=== PATIENT | female | born 1965 | race Two or more races ===

== ENCOUNTER 2017-09-26 02:23 | Emergency (ER) | payer MEDICAID, OTHER ==
[~2017-09-26] VITALS: Ht 162.6 cm; Wt 89.4 kg
[2017-09-26 03:13] VITALS: BP 134/72
== END 2017-09-26 06:09 | disposition left against medical advice (07) ==
LOC: ER 02:23 → EDBD 02:23 → ER 06:09
DX: R10.9 Unspecified abdominal pain (principal); R11.2 Nausea with vomiting, unspecified; Z53.21 Procedure and treatment not carried out due to patient leaving prior to being seen by health care provider

== ENCOUNTER 2021-10-18 04:58 | Emergency (ER) | payer MEDICAID ==
[~2021-10-18] VITALS: Ht 162.6 cm; Wt 88.5 kg
[2021-10-18 05:02] VITALS: BP 173/100
[2021-10-18] MEDS ORDERED: ASPirin 81 mg TAB PO ONE (05:15)
[2021-10-18 07:26] LABS: Basophils # (auto) 0.1 10 ^3/uL (0-0.2); Basophils % (auto) 1.8 % (0.0-2.0); Eosinophils # (auto) 0.3 10 ^3/uL (0-0.8); Eosinophils % (auto) 4.1 % (0.0-7.0); Hematocrit 43.2 % (36.0-46.0); Hemoglobin 14.3 g/dL (12.2-16.2); Lymphocytes # (auto) 1.8 10 ^3/uL (0.4-5.4); Mean Corpuscular Hemoglobin 30.8 pg (28.0-32.0); Mean Corpuscular Volume 93.2 fL (80.0-100.0); Monocytes # (auto) 0.5 10 ^3/uL (0-1.3); Monocytes % (auto) 7.6 % (0.0-12.0); Neutrophils # (auto) 4.3 10 ^3/uL (1.6-8.6); Neutrophils % (auto) 61.5 % (37.0-80.0); Nucleated Red Blood Cells % 0.1 %; Red Blood Cells 4.64 10^6/uL (4.0-5.20); Red Cell Distribution Width 13.4 % (11.8-14.3)
[2021-10-18 07:30] LABS: Albumin 3.8 g/dL (3.4-5.0); Calcium 8.7 mg/dL (8.5-10.1); Potassium 3.4 mmol/L (3.5-5.1)
[2021-10-18 07:35] LABS: BUN/Creatinine Ratio 17.9; Bilirubin, Total 0.4 mg/dL (0.2-1.0); Total Protein 8.4 g/dL (6.4-8.2)
== END 2021-10-18 08:19 | disposition left against medical advice (07) ==
LOC: ER 04:58
DX: R07.89 Other chest pain (principal); I10 Essential (primary) hypertension; E78.5 Hyperlipidemia, unspecified; Z90.49 Acquired absence of other specified parts of digestive tract; Z90.710 Acquired absence of both cervix and uterus
CPT/HCPCS: 36415; 71046; 80053; 83880; 84484; 85025; 93005

== ENCOUNTER 2025-05-28 10:33 | Inpatient (IN) | payer MEDICAID ==
[~2025-05-28] VITALS: Ht 160 cm; Wt 79.3 kg
--- NOTE | 2025-05-28 11:07 | ED.PDOC ---
Mult. trauma (HPI) HPI Comments 60 y.o female with PMHx of rheumatoid arthritis, osteoarthritis,chronic back pain HTN, and HLD, presents to the ED for a chief complaint of right sided body pain that includes right sided head, elbow, hip and knee s/p fall last night. Patient recalls getting up in the middle of the night to use the restroom, felt dizzy and then woke up on the floor with soreness to her right sided. Patient mentions having about 3 syncopes within a 3 month span with the previous being 3 weeks ago which she was found by her son on the floor unconscious in her closet. Patient denies any chest pain, SOB, fever, chills. Patient reports some back pain due to history of chronic back pain, although no new or worsening back to region site. Chief Complaint: Fall Injury Time Seen by MD: 11:00 Primary Care Provider: SATINDER Reviewed notes: Nurses Notes, Medications, Allergies Allergies: Coded Allergies: NO KNOWN ALLERGIES (Unverified , 10/18/21) Information Source: Patient Mode of Arrival: Ambulatory Severity: Moderate Timing: Hours Duration: Since onset Location: (R) Elbow, Head, (R) Hip, (R) Knee Location of laceration: None Mechanism: Fall Associated signs and symtoms: Other Past Medical History PAST MEDICAL HISTORY: Arthritis, High Lipids, HTN Surgical History: Cholecystectomy, , Hysterectomy Family History Family History: Family hx of DM, Family hx of Cancer Social History Smoker: Non-Smoker Alcohol: Denies ETOH Use Drugs: Denies Drug Use Constitutional: denies: chills, diaphoresis, fatigue, fever, malaise, sweats, weakness, others EENTM: denies: blurred vision, double vision, ear bleeding, ear discharge, ear drainage, ear pain, ear ringing, eye pain, eye redness, hearing loss, mouth pain, mouth swelling, nasal discharge, nose bleeding, nose congestion, nose pain, photophobia, tearing, throat pain, throat swelling, voice changes, others Respiratory: denies: cough, hemoptysis, orthopnea, SOB at rest, shortness of breath, SOB with excertion, stridor, wheezing, others Cardiovascular: denies: chest pain, dizzy spells, diaphoresis, Dyspnea on exertion, edema, irregular heart beat, left arm pain, lightheadedness, palpitations, PND, syncope, others Gastrointestinal: denies: abdomen distended, abdominal pain, blood streaked bowels, constipated, diarrhea, dysphagia, difficulty swallowing, hematemesis, melena, nausea, poor appetite, poor fluid intake, rectal bleeding, rectal pain, vomiting, others Genitourinary: denies: abnormal vagina bleeding, burning, dyspareunia, dysuria, flank pain, frequency, hematuria, incontinence, pain, , vagina discharge, urgency, others Neurological: denies: dizziness, fainting, headache, left sided numbness, left sided weakness, numbness, paresthesia, pre-existing deficit, right sided numbnes s, right sided weakness, seizure, speech problems, tingling, tremors, weakness, others Musculoskeletal: reports: others (right sided body soreness); denies: back pain, gout, joint pain, joint swelling, muscle pain, muscle stiffness, neck pain Integumetry: denies: bruises, change in color, change in hair/nails, dryness, laceration, lesions, lumps, rash, wounds, others Allergic/Immunocompromised: denies: Difficulty Healing, Frequent Infections, Hives, Itching, others Hematologic/Lymphatic: denies: anemia, blood clots, easy bleeding, easy bruising, swollen glands, others Endocrine: denies: excessive hunger, excessive sweating, excessive thirst, excessive urination, flushing, intolerance to cold, intolerance to heat, unexplained weight gain, unexplained weight loss, others Psychiatric: denies: anxiety, bipolar disorder, depression, hopeless, panic disorder, schizophrenia, sleepless, suicidal, others All Other Systems: Reviewed and Negative Physical Exam General Appearance: No Apparent Distress, Normal HEENT: Normal ENT Inspection Neck: Normal Inspection Respiratory: No Accessory Muscle Use, No Respiratory Distress Cardiovascular: Normal Peripheral Pulses, Regular Rate/Rhythm Breast Exam: Deferred Gastrointestinal: NOT DONE Genitalia: Deferred Pelvic: Deferred Rectal: Deferred Extremities: Normal inspection, Normal range of motion Neurologic: Alert, Normal Affect, Other (Ambulatory without assistance ) Reflexes: Normal Skin: Dry, Normal Color Lymphatic: NOT DONE Was a procedure done? Was a procedure done?: No Differential Diagnosis Multiple Trauma: Closed Head Injury, Fractures, Abrasions, Contusion X-Ray, Labs, Meds, VS Vital Signs Date Time Temp Pulse Resp B/P (MAP) Pulse Ox O2 Delivery O2 Flow Rate FiO2 05/28/25 10:34 97.8 67 18 134/78 98 97.8 Time of 1ST Reevaluation: 11:10 Reevaluation 1ST: Unchanged Patient Education/Counseling: Diagnosis, Treatment, Prognosis Family Education/Counseling: No Family Present Critical Care Note Critical Care Time?: No Stability Stability form required: No Heart Score Heart Score: Heart Score Response (Comments) Value History N/A 0 EKG N/A 0 Age N/A 0 Risk Factors N/A 0 Troponin N/A 0 Total 0 I personally scribed for ASHLEY WIGGINS MD ([email or web address]) on 05/28/25 at 11:07. Electronically submitted by Marti Sesay ([facility]). I personally scribed for ASHLEY WIGGINS MD ([email or web address]) on 05/28/25 at 11:10. Electronically submitted by Marti Sesay ([facility] I personally scribed for ASHLEY WIGGINS MD ([email or web address]) on 05/28/25 at 11:19. Electronically submitted by Marti Sesay ([facility]). ASHLEY WIGGINS MD May 28, 2025 11:07
--- NOTE | 2025-05-28 11:13 | ED.PDOC ---
History of Present Illness HPI Comments Recurrent falls, dizziness, generalized weakness Chief Complaint: Fall Injury Comments This 60-year-old female presents secondary to recurrent falls. She states she has fallen multiple times over the last three months. She finds herself on the floor after these events. She has no sensation or presenting noticed that she will fall. This morning, however, she states she feels generally unwell. Next thing she knows, she feels herself on the ground with the right side of her head, right shortness/normal right hip hurting. She became concerned and presented here. She has no other focal complaints but does feel generally weak. She endorses being under more stress than usual but otherwise has no other complaints. She denies such things with the vision changes, chest pain, flank pain, dysuria, urine frequency, fever, chills, sweats, nausea or vomiting. Denies modifying factors. Denies radiation of her symptoms. Time Seen by MD: 10:49 Primary Care Provider: SATINDER Allergies: Coded Allergies: NO KNOWN ALLERGIES (Unverified , 10/18/21) Mode of Arrival: Ambulatory Past Medical History PAST MEDICAL HISTORY: Arthritis, High Lipids, HTN Surgical History: Cholecystectomy, , Hysterectomy Family History Family History: Family hx of DM, Family hx of Cancer Social History Smoker: Non-Smoker Alcohol: Denies ETOH Use Drugs: Denies Drug Use Constitutional: reports: fatigue, malaise, weakness; denies: chills, diaphoresis, fever, sweats, others EENTM: denies: blurred vision, double vision, ear bleeding, ear discharge, ear drainage, ear pain, ear ringing, eye pain, eye redness, hearing loss, mouth pain, mouth swelling, nasal discharge, nose bleeding, nose congestion, nose pain, photophobia, tearing, throat pain, throat swelling, voice changes, others Respiratory: denies: cough, hemoptysis, orthopnea, SOB at rest, shortness of breath, SOB with excertion, stridor, wheezing, others Cardiovascular: denies: chest pain, dizzy spells, diaphoresis, Dyspnea on exertion, edema, irregular heart beat, left arm pain, lightheadedness, palpitations, PND, syncope, others Gastrointestinal: denies: abdomen distended, abdominal pain, blood streaked bowels, constipated, diarrhea, dysphagia, difficulty swallowing, hematemesis, melena, nausea, poor appetite, poor fluid intake, rectal bleeding, rectal pain, vomiting, others Genitourinary: denies: abnormal vagina bleeding, burning, dyspareunia, dysuria, flank pain, frequency, hematuria, incontinence, pain, , vagina discharg e, urgency, others Neurological: reports: fainting; denies: dizziness, headache, left sided numbness, left sided weakness, numbness, paresthesia, pre-existing deficit, right sided numbness, right sided weakness, seizure, speech problems, tingling, tremors, weakness, others Musculoskeletal: reports: back pain, joint pain, muscle pain; denies: gout, joint swelling, muscle stiffness, neck pain, others Integumetry: denies: bruises, change in color, change in hair/nails, dryness, laceration, lesions, lumps, rash, wounds, others Allergic/Immunocompromised: denies: Difficulty Healing, Frequent Infections, Hives, Itching, others Hematologic/Lymphatic: denies: anemia, blood clots, easy bleeding, easy b ruising, swollen glands, others Endocrine: denies: excessive hunger, excessive sweating, excessive thirst, excessive urination, flushing, intolerance to cold, intolerance to heat, unexplained weight gain, unexplained weight loss, others Physical Exam General Appearance: Mild Distress, Normal HEENT: Head (Atraumatic, normocephalic), Normal ENT Inspection, Scleral Icterus (R) (No scleral icterus) Neck: Full Range of Motion, Non-Tender, Normal, Normal Inspection Respiratory: Chest Non-Tender, Lungs Clear, No Accessory Muscle Use, No Respiratory Distress, Normal Breath Sounds Cardiovascular: No Edema, No Murmur, No Gallop, Normal Peripheral Pulses, Regular Rate/Rhythm Breast Exam: Deferred Gastrointestinal: No Organomegaly, Non Tender, Normal Bowel Sounds, Soft Genitalia: Deferred Pelvic: Deferred Rectal: Deferred Extremities: No calf tenderness, Normal capillary refill, Normal inspection, Normal range of motion, Non-tender, No pedal edema Neurologic: Alert, audio/visual operator II-XII nml as Tested, No Motor Deficits, Normal Affect, Normal Mood, No Sensory Deficits Cerebellar Function: Normal Reflexes: NOT DONE Skin: Dry, Normal Color, Warm Lymphatic: NOT DONE Was a procedure done? Was a procedure done?: No Differential Dx Considerations may include: Cardiac arrhythmia, electrolyte abnormality, infection, TIA X-Ray, Labs, Meds, VS Vital Signs Date Time Temp Pulse Resp B/P (MAP) Pulse Ox O2 Delivery O2 Flow Rate FiO2 05/28/25 11:49 65 18 117/72 (87) 99 05/28/25 11:49 65 18 99 Room Air 05/28/25 10:34 97.8 67 18 134/78 98 97.8 Lab Test 05/28/25 11:25 05/28/25 11:15 Range/Units Urine Color Light-yellow Yellow Urine Clarity Clear Clear Urine pH 6.0 5.0-9.0 Urine Specific [place] 1.017 1.001-1.035 Urine Protein Trace H Negative Urine Ketones Negative Negative Urine Blood Negative Negative /uL Urine Nitrite Negative Negative Urine Bilirubin Negative Negative Urine Urobilinogen Normal Negative mg/dL Urine Leukocyte Esterase 2+ Negative /uL Urine RBC 1 0 - 4 /hpf Urine Microscopic WBC 3 0-5 /HPF Urine Squamous Epithelial Cells Few <5 /hpf Urine Bacteria Few H None Seen /hpf Urine Mucus Few None Seen Urine Glucose Normal Normal mg/dL Urine Opiates Screen Neg NEGATIVE Urine Fentanyl Screen Neg NEGATIVE Urine Barbiturates Screen Neg NEGATIVE Urine Phencyclidine Screen Neg NEGATIVE Urine Amphetamines Screen Neg NEGATIVE Urine Benzodiazepines Screen Neg NEGATIVE Urine Cocaine Screen Neg NEGATIVE Urine Cannabinoids Screen Neg NEGATIVE White Blood Count 9.2 4.4-10.8 10^3/uL Red Blood Count 4.38 4.0-5.20 10^6/uL Hemoglobin 14.2 12.2-16.2 g/dL Hematocrit 40.7 36.0-46.0 % Mean Corpuscular Volume 93.0 80.0-100.0 fL Mean Corpuscular Hemoglobin 32.5 H 28.0-32.0 pg Mean Corpuscular Hemoglobin Concent 34.9 32.0-36.0 g/dL Red Cell Distribution Width 13.0 11.8-14.3 % Platelet Count 280 140-450 10^3/uL Mean Platelet Volume 10.4 6.9-10.8 fL Neutrophils (%) (Auto) 63.4 37.0-80.0 % Lymphocytes (%) (Auto) 26.8 10.0-50.0 % Monocytes (%) (Auto) 7.6 0.0-12.0 % Eosinophils (%) (Auto) 1.2 0.0-7.0 % Basophils (%) (Auto) 1.0 0.0-2.0 % Neutrophils # (Auto) 5.8 1.6-8.6 10 ^3/uL Lymphocytes # (Auto) 2.5 0.4-5.4 10 ^3/uL Monocytes # (Auto) 0.7 0-1.3 10 ^3/uL Eosinophils # (Auto) 0.1 0-0.8 10 ^3/uL Basophils # (Auto) 0.1 0-0.2 10 ^3/uL Nucleated Red Blood Cells 0.0 % D-Dimer, Quantitative 0.75 H 0.0-0.49 mg/L FEU Sodium Level 138 136-145 mmol/L Potassium Level 2.7 L 3.5-5.1 mmol/L Chloride Level 99 98-107 mmol/L Carbon Dioxide Level 26 20-31 mmol/L Anion Gap 13 5-15 Blood Urea Nitrogen 18 9-23 mg/dL Creatinine 1.10 H 0.550-1.02 mg/dL Glomerular Filtration Rate Calc 58 >90 mL/min BUN/Creatinine Ratio 16.4 10.0-20.0 Serum Glucose 100 74-106 mg/dL Calcium Level 9.7 8.7-10.4 mg/dL Total Bilirubin 0.5 0.2-1.0 mg/dL Aspartate Amino Transferase (AST) 30 13-40 U/L Alanine Aminotransferase (ALT) 21 7-40 U/L Alkaline Phosphatase 84 46-116 U/L Troponin I High Sensitivity 3 L </=34 ng/L B-Type Natriuretic Peptide 7.72 0-100 pg/mL Total Protein 8.5 H 5.7-8.2 g/dL Albumin 4.8 3.2-4.8 g/dL [place] [id number] Ph: [phone] DIAGNOSTIC IMAGING Diagnostic Imaging Report : [id number] Signed PATIENT: SIDDHARTHA LISA ACCT: [id number] UNIT: [id number] : 1965 LOC: ER ROOM / BED: / AGE / SEX: 60 / F ADM STATUS: REG ER SERVICE [id number] ORDERING PHYSICIAN: ASHLEY WIGGINS MD PROCEDURE(s): HWOCT - HEAD WITHOUT CONTRAST REASON: recurrent falls, generalized weakness ORDER NUMBER(s): [id number], ACCESSION NUMBER(s): [id number] CT HEAD WITHOUT CONTRAST INDICATION: recurrent falls, generalized weakness COMPARISON: None TECHNIQUE: CT of the head without intravenous contrast. RADIATION DOSE: CTDIvol: 53.46 mGy, DLP: 53.46 mGy*cm FINDINGS: There is no evidence of acute intracranial hemorrhage, extra-axial collection, mass effect, midline shift, herniation or hydrocephalus. The ventricles, sulci and cisterns are age appropriate. The dueñas-white differentiation is intact. The visualized paranasal sinuses and mastoid air cells are clear. The surrounding soft tissues and osseous structures are unremarkable. IMPRESSION: 1. No evidence of acute intracranial hemorrhage, mass effect or hydrocephalus. ATED BY: DESHAWN COLLINS MD DICTATED DATE/TIME: 05/28/25 113 SIGNED BY: DESHAWN CLOLINS MD SIGNED DATE/TIME: 05/28/251137 CC: X-Ray, Labs, Meds, VS Comment This 60-year-old female presents secondary to multiple episodes of faint. However, she denies having any preceding noticed of her falls. She patient's finds herself on the floor. She has had multiple times over the last three months. She has not seen a physician for these episodes. Secondary to the recurrent nature and multiple cardiac risk factors, worse the patient may be having cardiac arrhythmia or other findings were we are not capturing while in the emergency room. As such, she will be admitted. Time of 1ST Reevaluation: 13:34 Reevaluation 1ST: Unchanged Patient Education/Counseling: Diagnosis, Treatment, Prognosis, Need For Follow Up Family Education/Counseling: No Family Present SEPSIS Sepsis Screen Date sepsis recognized/suspect: May 28, 2025 Time Sepsis recognized/suspect: 1034 Recent Procedure: No On Antibiotic Therapy: No Respiratory Rate >20: No Heart Rate >90: No Temp<36 C (96.8 F) or >38.3 C: No SBP <90 or MAP <65 mmHG: No New Acute Mental Status Change: No Is the patient on CPAP, BIPAP,: No Physician Orders Head Without Contrast (05/28/25 10:57) Electrocardigram (05/28/25 10:57) Electrocardigram (05/28/25 11:57) Electrocardigram (05/28/25 13:57) Vital Signs Date Time Temp Pulse Resp B/P (MAP) Pulse Ox O2 Delivery O2 Flow Rate FiO2 05/28/25 11:49 65 18 117/72 (87) 99 05/28/25 11:49 65 18 99 Room Air 05/28/25 10:34 97.8 67 18 134/78 98 97.8 Laboratory Tests Test 05/28/25 11:15 White Blood Count 9.2 10^3/uL (4.4-10.8) Departure 1 Departure Time of Disposition: 11:13 Impression: Primary Impression: Recurrent falls while walking Additional Impressions: Weakness Syncope Hypokalemia Disposition: ADMITTED INPATIENT Admit to: [facility] Condition: Serious Critical Care Note Critical Care Time?: No Stability Stability form required: No Heart Score Heart Score: Heart Score Response (Comments) Value History N/A 0 EKG N/A 0 Age N/A 0 Risk Factors N/A 0 Troponin N/A 0 Total 0 I personally scribed for ASHLEY WIGGINS MD ([email or web address]) on 05/28/25 at 11:51. Electronically submitted by Marti Sesay ([facility]). ASHLEY WIGGINS MD May 28, 2025 11:13
--- NOTE | 2025-05-28 11:40 | DVH ---
CT HEAD WITHOUT CONTRAST INDICATION: recurrent falls, generalized weakness COMPARISON: None TECHNIQUE: CT of the head without intravenous contrast. RADIATION DOSE: CTDIvol: 53.46 mGy, DLP: 53.46 mGy*cm FINDINGS: There is no evidence of acute intracranial hemorrhage, extra-axial collection, mass effect, midline s hift, herniation or hydrocephalus. The ventricles, sulci and cisterns are age appropriate. The dueñas -white differentiation is intact. The visualized paranasal sinuses and mastoid air cells are clear. The surrounding soft tissues and osseous structures are unremarkable. IMPRESSION: 1. No evidence of acute intracranial hemorrhage, mass effect or hydrocephalus.
[2025-05-28 11:41] LABS: Hematocrit 40.7 % (36.0-46.0); Hemoglobin 14.2 g/dL (12.2-16.2); Mean Corpuscular Hemoglobin 32.5 pg (28.0-32.0); Mean Corpuscular Volume 93.0 fL (80.0-100.0); Nucleated Red Blood Cells % 0.0 %
[2025-05-28 12:00] LABS: Alanine Aminotransferase 21 U/L (7-40); Albumin 4.8 g/dL (3.2-4.8); Alkaline Phosphatase 84 U/L (46-116); Anion Gap 13 (5-15); BUN/Creatinine Ratio 16.4 (10.0-20.0); Blood Urea Nitrogen 18 mg/dL (9-23); Calcium 9.7 mg/dL (8.7-10.4); Carbon Dioxide 26 mmol/L (20-31); Chloride 99 mmol/L (98-107); Glucose 100 mg/dL (74-106); Sodium 138 mmol/L (136-145)
[2025-05-28 12:01] LABS: Bilirubin, Total 0.5 mg/dL (0.2-1.0); Potassium 2.7 mmol/L (3.5-5.1); Total Protein 8.5 g/dL (5.7-8.2)
[2025-05-28 12:50] LABS: Urine Protein, UAD TRACE (Negative)
[2025-05-28 12:54] LABS: Benzodiazephine Screen, Urine Neg (NEGATIVE)
[2025-05-28 12:55] LABS: Amphetamine Screen, Urine Neg (NEGATIVE); Barbiturate Scree,Urine Neg (NEGATIVE); Cannabinoid Screen, Urine Neg (NEGATIVE); Cocaine Screen, Urine Neg (NEGATIVE); Opiate Scree,Urine Neg (NEGATIVE); Phencyclidine Screen, Urine Neg (NEGATIVE)
[2025-05-28] MEDS ORDERED: DOCUSATE SOD 100 MG CAP PO PRN (15:15)
[2025-05-28] MEDS ORDERED: ACETAMINOPHEN 325 MG TAB PO PRN (15:15)
[2025-05-28] MEDS ORDERED: ONDANSETRON HCL 4 MG/2 ML VIAL IV PRN (15:15)
--- NOTE | 2025-05-28 15:16 | DVHHP2 ---
Admitting Diagnosis: Syncope History of Present Illness This 60-year-old female presents secondary to recurrent falls. She states she has fallen multiple times over the last three months. She finds herself on the floor after these events. She has no sensation or presenting noticed that she will fall. This morning, however, she states she feels generally unwell. Next thing she knows, she feels herself on the ground with the right side of her head, right shortness/normal right hip hurting. She became concerned and presented here. She has no other focal complaints but does feel generally weak. She endorses being under more stress than usual but otherwise has no other complaints. She denies such things with the vision changes, chest pain, flank pain, dysuria, urine frequency, fever, chills, sweats, nausea or vomiting. Denies modifying factors. Denies radiation of her symptoms. PAST MEDICAL HISTORY: Arthritis, High Lipids, HTN Surgical History: Cholecystectomy, , Hysterectomy Family History Family History: Family hx of DM, Family hx of Cancer Social History Smoker: Non-Smoker Alcohol: Denies ETOH Use Drugs: Denies Drug Use Allergies: Coded Allergies: NO KNOWN ALLERGIES (Unverified , 10/18/21) Current Medications Current Medications Medications (Trade) Dose Ordered Sig/Ariana Route PRN Reason Start Time Stop Time Status Last Admin Sodium Chloride (Saline Lock Ns) 10 ml Q8HR IV 05/28/25 22:00 UNV Docusate Sodium (Colace Capsule) 100 mg BIDPRN PRN PO FOR CONSTIPATION 05/28/25 15:15 UNV Acetaminophen (Tylenol Tablet) 650 mg Q6HP PRN PO PAIN SCALE 1-3 OR TEMP>100.4 05/28/25 15:15 UNV Acetaminophen/ Hydrocodone Bitart ([place] 5/325MG Tab) 1 tab Q4HP PRN PO MODERATE PAIN (4-6 PAIN SCALE) 05/28/25 15:15 UNV Ondansetron HCl (Zofran) 4 mg Q4HP PRN IV NAUSEA / VOMITING 05/28/25 15:15 UNV Enoxaparin Sodium (Lovenox) 40 mg DAILY SC 05/29/25 10:00 UNV Vital Signs Vital Signs Date Time Temp Pulse Resp B/P (MAP) Pulse Ox O2 Delivery O2 Flow Rate FiO2 05/28/25 11:49 65 18 117/72 (87) 99 8/24/25 11:49 Room Air 05/28/25 10:34 97.8 97.8 Physical Exam Generally-60 years old woman, overweight, sitting on chair. No apparent distress HEENT-atraumatic normocephalic Heart-regular rate and rhythm lungs clear to auscultate Abdomen soft nontender nondistended Musculoskeletal-no edema cyanosis Neuro-AO x3, no focal deficit SEPSIS Sepsis Screen Date sepsis recognized/suspect: May 28, 2025 Time Sepsis recognized/suspect: 1033 Recent Procedure: No On Antibiotic Therapy: No Respiratory Rate >20: No Heart Rate >90: No Temp<36 C (96.8 F) or >38.3 C: No SBP <90 or MAP <65 mmHG: No New Acute Mental Status Change: No Is the patient on CPAP, BIPAP,: No Physician Orders Head Without Contrast (05/28/25 10:57) Electrocardigram (05/28/25 10:57) Electrocardigram (05/28/25 11:57) Electrocardigram (05/28/25 13:57) Ct Angio Chest Contrast (05/28/25 15:03) R Elbow 2v Xray (05/28/25 15:03) * Neurology Consult (05/28/25 15:03) Carotid Duplx W Color Dop (05/28/25 15:03) Brain Head Wo Contrast (05/28/25 15:03) Orthostatic Vital Signs (05/28/25 15:03) Orthostatic Vital Signs (05/28/25 23:03) Orthostatic Vital Signs (05/29/25 07:03) Orthostatic Vital Signs (05/29/25 15:03) Orthostatic Vital Signs (05/29/25 23:03) Sodium Chloride 0.9% (05/28/25 15:15) Regular Diet (05/28/25 Dinner) Admit (05/28/25 15:03) Code Status (05/28/25 15:03) Vital Signs .PER UNIT PROTOCOL (05/28/25 15:03) Review Orders With Adm. (05/28/25 15:03) Encourage Activity As Tolerate (05/28/25 15:03) Sodium Chloride Lock (Saline Lock Ns) (05/28/25 22:00) Docusate Sodium Capsule (Colace Capsule) (05/28/25 15:15) Acetaminophen Tablet (Tylenol Tablet) (05/28/25 15:15) Notify Of Changes From Base (05/28/25 15:03) Advance Directive (05/28/25 15:03) Echo 2d Mode Cardiac Dop (05/28/25 15:03) Patient Condition (05/28/25 15:03) Allergies (05/28/25 15:03) Hydrocodone-Acet 5/325mg Tab ([place] 5/32 (05/28/25 15:15) Ondansetron Hcl (Zofran) (05/28/25 15:15) Lovenox 40mg (05/29/25 10:00) Vital Signs Date Time Temp Pulse Resp B/P (MAP) Pulse Ox O2 Delivery O2 Flow Rate FiO2 05/28/25 11:49 65 18 117/72 (87) 99 05/28/25 11:49 65 18 99 Room Air 05/28/25 10:34 97.8 67 18 134/78 98 97.8 Laboratory Tests Test 05/28/25 11:15 White Blood Count 9.2 10^3/uL (4.4-10.8) Results Labs Test 05/28/25 11:25 05/28/25 11:15 Range/Units Urine Color Light-yellow Yellow Urine Clarity Clear Clear Urine pH 6.0 5.0-9.0 Urine Specific [place] 1.017 1.001-1.035 Urine Protein Trace H Negative Urine Ketones Negative Negative Urine Blood Negative Negative /uL Urine Nitrite Negative Negative Urine Bilirubin Negative Negative Urine Urobilinogen Normal Negative mg/dL Urine Leukocyte Esterase 2+ Negative /uL Urine RBC 1 0 - 4 /hpf Urine Microscopic WBC 3 0-5 /HPF Urine Squamous Epithelial Cells Few <5 /hpf Urine Bacteria Few H None Seen /hpf Urine Mucus Few None Seen Urine Glucose Normal Normal mg/dL Urine Opiates Screen Neg NEGATIVE Urine Fentanyl Screen Neg NEGATIVE Urine Barbiturates Screen Neg NEGATIVE Urine Phencyclidine Screen Neg NEGATIVE Urine Amphetamines Screen Neg NEGATIVE Urine Benzodiazepines Screen Neg NEGATIVE Urine Cocaine Screen Neg NEGATIVE Urine Cannabinoids Screen Neg NEGATIVE White Blood Count 9.2 4.4-10.8 10^3/uL Red Blood Count 4.38 4.0-5.20 10^6/uL Hemoglobin 14.2 12.2-16.2 g/dL Hematocrit 40.7 36.0-46.0 % Mean Corpuscular Volume 93.0 80.0-100.0 fL Mean Corpuscular Hemoglobin 32.5 H 28.0-32.0 pg Mean Corpuscular Hemoglobin Concent 34.9 32.0-36.0 g/dL Red Cell Distribution Width 13.0 11.8-14.3 % Platelet Count 280 140-450 10^3/uL Mean Platelet Volume 10.4 6.9-10.8 fL Neutrophils (%) (Auto) 63.4 37.0-80.0 % Lymphocytes (%) (Auto) 26.8 10.0-50.0 % Monocytes (%) (Auto) 7.6 0.0-12.0 % Eosinophils (%) (Auto) 1.2 0.0-7.0 % Basophils (%) (Auto) 1.0 0.0-2.0 % Neutrophils # (Auto) 5.8 1.6-8.6 10 ^3/uL Lymphocytes # (Auto) 2.5 0.4-5.4 10 ^3/uL Monocytes # (Auto) 0.7 0-1.3 10 ^3/uL Eosinophils # (Auto) 0.1 0-0.8 10 ^3/uL Basophils # (Auto) 0.1 0-0.2 10 ^3/uL Nucleated Red Blood Cells 0.0 % D-Dimer, Quantitative 0.75 H 0.0-0.49 mg/L FEU Sodium Level 138 136-145 mmol/L Potassium Level 2.7 L 3.5-5.1 mmol/L Chloride Level 99 98-107 mmol/L Carbon Dioxide Level 26 20-31 mmol/L Anion Gap 13 5-15 Blood Urea Nitrogen 18 9-23 mg/dL Creatinine 1.10 H 0.550-1.02 mg/dL Glomerular Filtration Rate Calc 58 >90 mL/min BUN/Creatinine Ratio 16.4 10.0-20.0 Serum Glucose 100 74-106 mg/dL Calcium Level 9.7 8.7-10.4 mg/dL Total Bilirubin 0.5 0.2-1.0 mg/dL Aspartate Amino Transferase (AST) 30 13-40 U/L Alanine Aminotransferase (ALT) 21 7-40 U/L Alkaline Phosphatase 84 46-116 U/L Troponin I High Sensitivity 3 L </=34 ng/L B-Type Natriuretic Peptide 7.72 0-100 pg/mL Total Protein 8.5 H 5.7-8.2 g/dL Albumin 4.8 3.2-4.8 g/dL Primary Diagnosis Syncope Fall Elbow pain Rule out stroke Rule out orthostatic hypotension Plan Patient states the episodes happen like when she get up suspect orthostatic and vasovagal rule out stroke CT head negative acute intracranial hemorrhage Check MRI brain to rule out stroke Check carotid Doppler to rule out carotid stenosis Check echo to assess for structural heart disease X-ray right elbow to rule out fracture Orthostatic vital q.8h Obtain home meds IV fluids Full code Lovenox for DVT prophylaxis No GI prophylaxis needed Plan discussed with: Patient Problems List: (1) Recurrent falls while walking Status: Acute (2) Weakness Status: Acute (3) Syncope Status: Acute Date of Service: May 28, 2025 Billing Provider: SHARATH TERRAZAS MD Common Visit Codes: [id number] INP/OBS CARE (HIGH) SHARATH TERRAZAS MD May 28, 2025 15:15
[2025-05-28] MEDS: IOHEXOL 350 MG/ML 100ML IJ ONE (15:45)
[2025-05-28] MEDS: SODIUM CHLORIDE 0.9% 1,000 ML IV ONE (15:45)
[2025-05-28] MEDS: POTASSIUM EFFERVESENT TAB 25 MEQ PO ONE (15:49)
[2025-05-28 15:51] VITALS: PULSE 78; RESP 18; O2SAT 97
--- NOTE | 2025-05-28 15:52 | DVH ---
CLINICAL INDICATION: assess for fracture TECHNIQUE: XY R ELBOW 2 views XRAY Comparison: None FINDINGS/IMPRESSION: There is no evidence of acute fracture or dislocation. Soft tissues are unremarkable.
--- NOTE | 2025-05-28 15:58 | DVH ---
CTA Chest with intravenous contrast INDICATION: elevated d-dimer r/o PE COMPARISON: None TECHNIQUE: Multidetector spiral CTA of the chest was performed of the chest with intravenous contrast . PULMONARY ANGIOGRAPHY PROTOCOL was utilized using a bolus-tracking technique centered on the main p ulmonary artery. Axial, coronal and sagittal multiplanar and MIP reformats were performed. Radiation Dose : 1. Chest: CTDI volume is 27.2 mGy. Dose-length product is 827 mGy*cm The dose indicators for CT are the volume Computed Tomography (CT) Dose Index (CTDIvol) and the Dose Length Product (DLP), and are measured in units of mGy and mGy-cm, respectively. These indicators are not patient dose, but values generated from the CT scanner acquisition factors. The report includes radiation exposure data for exposures received during this examination. Findings: Pulmonary artery: No pulmonary embolism Lower neck: Normal thyroid. Lungs: No focal consolidation, pleural effusion or pneumothorax. Heart/Vascular Structures: Normal heart size. No pericardial effusion. Lymph Nodes: No adenopathy Pleura: No pleural effusion or significant pneumothorax. Musculoskeletal: No acute osseous abnormality. Soft tissues: Normal. Upper abdomen: Status post cholecystectomy IMPRESSION: . 1. No pulmonary embolism. 2. No acute thoracic finding.
--- NOTE | 2025-05-28 16:22 | DVH ---
Carotid Duplex Date: 05/28/2025 03:46 PM Clinical History: syncope Comparison: None Technique: Duplex Doppler evaluation of the extracranial carotid and vertebral arteries including col or Doppler and spectral/pulsed waveform analysis was performed. Findings: RIGHT SIDE: The peak systolic velocities are 87 cm/s in the distal CCA and 113 cm/s in the proximal ICA.The ICA/C CA ratio is less than 2. The external carotid artery is patent with peak systolic velocity of 71 cm/s proximally. There is appropriate antegrade flow in the right vertebral artery. LEFT SIDE: The peak systolic velocities are 81 cm/s in the distal CCA and 81 cm/s in the proximal ICA.. The ICA/ CCA ratio is less than 2. The external carotid artery is patent with peak systolic velocity of 43 cm/s proximally. There is appropriate antegrade flow in the left vertebral artery. IMPRESSION: No hemodynamically significant stenosis noted in the right carotid system. No hemodynamically significant stenosis noted in the left carotid system. Reference: Radiology 2003; 229:[id number]
[2025-05-28] MEDS: HYDROcodone-ACET 5/325MG TAB PO PRN (19:25)
[2025-05-28] MEDS: SODIUM CHLOR 0.9% PF (SALINE LOCK) 10ML VIAL/SYR IV SCH (22:39)
[2025-05-29] VITALS (10 sets, daily range): BP systolic 125–162; BP diastolic 73–96; PULSE 61–108; RESP 16–18; TEMP 98–98.9; O2SAT 92–99
[2025-05-29] MEDS ORDERED: FERR325T24 PO (00:48)
[2025-05-29] MEDS ORDERED: DOCU-94 PO (00:48)
[2025-05-29] MEDS ORDERED: LOSA-534 PO (00:48)
[2025-05-29] MEDS ORDERED: TRAZ-228 PO (00:48)
[2025-05-29] MEDS ORDERED: HYDR-4072 PO (00:48)
[2025-05-29] MEDS ORDERED: PROP60CA34 PO (00:48)
[2025-05-29] MEDS ORDERED: DOXY100C4 PO (00:48)
[2025-05-29] MEDS ORDERED: SERT-206 PO (00:48)
[2025-05-29] MEDS ORDERED: TIZA4CAP14 PO (00:48)
[2025-05-29] MEDS ORDERED: FEXO-226 PO (00:48)
[2025-05-29] MEDS ORDERED: AMLO1TAB22 PO (00:48)
[2025-05-29] MEDS ORDERED: GABA-1250 PO (00:48)
[2025-05-29] MEDS ORDERED: CHOL20007 PO (00:48)
[2025-05-29 05:54] LABS: Hematocrit 41.6 % (36.0-46.0); Hemoglobin 14.3 g/dL (12.2-16.2); Mean Corpuscular Hemoglobin 32.0 pg (28.0-32.0); Mean Corpuscular Volume 93.0 fL (80.0-100.0); Nucleated Red Blood Cells % 0.1 %
[2025-05-29 06:34] LABS: Alanine Aminotransferase 22 U/L (7-40); Alkaline Phosphatase 91 U/L (46-116); Anion Gap 14 (5-15); BUN/Creatinine Ratio 17.0 (10.0-20.0); Blood Urea Nitrogen 15 mg/dL (9-23); Calcium 9.5 mg/dL (8.7-10.4); Carbon Dioxide 28 mmol/L (20-31); Chloride 99 mmol/L (98-107); Glucose 100 mg/dL (74-106); Sodium 141 mmol/L (136-145)
[2025-05-29 06:35] LABS: Albumin 4.6 g/dL (3.2-4.8); Bilirubin, Total 0.5 mg/dL (0.2-1.0)
[2025-05-29 06:39] LABS: Potassium 2.7 mmol/L (3.5-5.1); Total Protein 8.4 g/dL (5.7-8.2)
[2025-05-29] MEDS: ENOXAPARIN SOD 40 MG/0.4 ML SYRINGE SC SCH (08:39)
[2025-05-29 11:17] LABS: Hepatitis C Antibody Negative (Negative)
--- NOTE | 2025-05-29 12:00 | DVH ---
PROCEDURE: MRI OF THE BRAIN WITHOUT CONTRAST. CLINICAL INDICATION: persistent syncope TECHNIQUE: Multiplanar, multi sequence MRI of the brain was performed without intravenous contrast. COMPARISON: CT HEAD WITHOUT CONTRAST on DOS: 05/28/25 FINDINGS: The signal characteristics of the brain parenchyma is within normal limits. There are no areas of res tricted diffusion to suggest acute infarct. No evidence of space occupying mass lesion, extra-axial c ollections or hemorrhage is noted. The ventricles, sulci and basal cisterns are intact. There is no s ignal abnormality in the posterior fossa. The paranasal sinuses and mastoid air cells are well pneumatized. The orbits and nasopharynx are inta ct. The osseous structures are intact. The vessels of the skull base demonstrate signal void consistent with patency. IMPRESSION: 1. No acute intracranial abnormality.
--- NOTE | 2025-05-29 12:23 | DVHPN2 ---
Subjective Patient is seen at bedside, currently asymptomatic Reviewed: Care Plan Changes from previous H/P or p: No Changes General: Per HPI Objective Vitals Vital Signs Date Time Temp Pulse Resp B/P (MAP) Pulse Ox O2 Delivery O2 Flow Rate FiO2 05/29/25 09:00 98.2 84 16 152/87 (108) 94 98.2 05/29/25 00:12 Room Air* 0 21 Intake/Output Intake and Output 05/29/25 07:00 Intake Total 75 ml Balance 75 ml Intake Oral 75 ml # Voids 1 Exam GEN: Healthy appearing, well-developed, NAD. HEENT: NC/AT; MMM. CV: RRR, no m/r/g. LUNGS: CTAB, no w/r/c. ABD: Soft, NT/ND, NBS, no masses or organomegaly. EXT: skin Warm, well perfused. no rashes. No clubbing, cyanosis, or edema. NEURO: Ambulating with no limitations. No focal deficits. Medications Current Medications Medications Dose Ordered Sig/Ariana Route Start Time Stop Time Status Last Admin Dose Admin Sodium Chloride 10 ml Q8HR IV 05/28/25 22:00 05/29/25 05:29 10 ML Docusate Sodium 100 mg BIDPRN PRN PO 05/28/25 15:15 Acetaminophen 650 mg Q6HP PRN PO 05/28/25 15:15 Acetaminophen/ Hydrocodone Bitart 1 tab Q4HP PRN PO 05/28/25 15:15 05/29/25 08:40 1 TAB Ondansetron HCl 4 mg Q4HP PRN IV 05/28/25 15:15 Enoxaparin Sodium 40 mg DAILY SC 05/29/25 10:00 05/29/25 08:39 40 MG Laboratory Results Laboratory Tests 05/29/25 05:00 Chemistry Test 05/29/25 05:00 Albumin 4.6 g/dL (3.2-4.8) Calcium Level 9.5 mg/dL (8.7-10.4) Total Protein 8.4 g/dL (5.7-8.2) H LFT Test 05/29/25 05:00 Alanine Aminotransferase (ALT) 22 U/L (7-40) Alkaline Phosphatase 91 U/L (46-116) Aspartate Amino Transferase (AST) 28 U/L (13-40) Total Bilirubin 0.5 mg/dL (0.2-1.0) Urinalysis Test 05/28/25 11:25 Urine Color Light-yellow (Yellow) Urine Clarity Clear (Clear) Urine pH 6.0 (5.0-9.0) Urine Specific [place] 1.017 (1.001-1.035) Urine Protein Trace (Negative) H Urine Ketones Negative (Negative) Urine Blood Negative /uL (Negative) Urine Nitrite Negative (Negative) Urine Bilirubin Negative (Negative) Urine Urobilinogen Normal mg/dL (Negative) Urine Leukocyte Esterase 2+ /uL (Negative) Urine RBC 1 /hpf (0 - 4) Urine Microscopic WBC 3 /HPF (0-5) Urine Squamous Epithelial Cells Few /hpf (<5) Urine Bacteria Few /hpf (None Seen) H Urine Mucus Few (None Seen) Urine Glucose Normal mg/dL (Normal) Labs and/or images reviewed: Labs reviewed by me, Image(s) reviewed by me Assessment/Plan Assessment/Plan 60-year-old female presents secondary to recurrent falls. She states she has fallen multiple times over the last three months. She finds herself on the floor after these events. She has no sensation or presenting noticed that she will fall. This morning, however, she states she feels generally unwell. Next thing she knows, she feels herself on the ground with the right side of her head, right shortness/normal right hip hurting. She became concerned and presented here. She has no other focal complaints but does feel generally weak. She endorses being under more stress than usual but otherwise has no other complaints. She denies such things with the vision changes, chest pain, flank pain, dysuria, urine frequency, fever, chills, sweats, nausea or vomiting. Denies modifying factors. Denies radiation of her symptoms. PAST MEDICAL HISTORY: Arthritis, High Lipids, HTN 05/29: Admission team has done extensive workup CT head, MRI, carotid Doppler, CT angio head neck which are all negative, we are pending echo. Pending orthostatics. We will order PT. We will need to review EKG, keep patient on tele. UDS negative, no significant hypotension. Continuing workup for syncope/presyncope. Areas of by impact on body including right elbow was negative for fractures. Patient has some early signs of UTI, UDS negative, some signs of low-grade dehydration with increased creatinine, mild concentration of urine,. Patient also has hypokalemia. Patient has had multiple episodes of syncope/presyncope, appears to be possible cardiac nature, it is concerning, although workup negative psoas far we will monitor on telemetry at least 48 hours. Orthostatic vitals today. We will hold off amlodipine and losartan as blood pressure within normal range despite no medications being given. Orthostatics were negative but since blood pressure is normal patient is presenting as orthostatic symptoms at home we will hold off any blood pressure medications. Diagnosis: Volume depletion Hypokalemia Syncope due to above Ruled out carotid stenosis Ruled out intracranial hemorrhage Ruled out stroke Physical deconditioning possible Acute complicated UTI possible Plan: - IV antibiotics Replete electrolytes as needed Orthostatic vitals Telemetry Hold blood pressure medications Tele Full code Plan discussed with: Spouse Date of Service: May 29, 2025 Billing Provider: MAI HEART MD Common Visit Codes: [id number] INP/OBS CARE(HIGH) MAI HEART MD May 29, 2025 12:22
[2025-05-29] MEDS: POTASSIUM EFFERVESENT TAB 25 MEQ GT ONE (13:15)
[2025-05-29] MEDS: POTASSIUM CHLORIDE 40 MEQ, LIDOCAINE 1% (LOCAL ANESTH.) 4 ML in SODIUM CHL 0.9% 250 ML IV ONE (15:02)
[2025-05-30 01:30] VITALS: BP 140/85; PULSE 94; RESP 16; TEMP 97.9; O2SAT 97
[2025-05-30 05:30] VITALS: BP 126/74; PULSE 80; RESP 15; TEMP 97; O2SAT 94
[2025-05-30 06:59] LABS: Hematocrit 37.4 % (36.0-46.0); Hemoglobin 12.9 g/dL (12.2-16.2); Mean Corpuscular Hemoglobin 32.4 pg (28.0-32.0); Mean Corpuscular Volume 93.7 fL (80.0-100.0); Nucleated Red Blood Cells % 0.0 %
[2025-05-30 07:02] LABS: Anion Gap 11 (5-15); Calcium 9.3 mg/dL (8.7-10.4); Carbon Dioxide 29 mmol/L (20-31); Chloride 102 mmol/L (98-107); Potassium 3.5 mmol/L (3.5-5.1); Sodium 142 mmol/L (136-145)
[2025-05-30 07:08] LABS: BUN/Creatinine Ratio 17.6 (10.0-20.0); Blood Urea Nitrogen 13 mg/dL (9-23); Glucose 95 mg/dL (74-106)
[2025-05-30 08:12] VITALS: PULSE 89
[2025-05-30 09:00] VITALS: BP 157/107; PULSE 87; RESP 20; TEMP 97.8; O2SAT 95
[2025-05-30] MEDS ORDERED: LOSARTAN POTASSIUM 25 MG TAB PO SCH (10:00)
--- NOTE | 2025-05-30 12:01 | DVHSR ---
APPROVED REPORT EXAM: Two-dimensional and M-mode echocardiogram with Doppler and color Doppler. Blood Pressure: 126/74 mmHg INDICATION Syncope RISK FACTORS Height: 63, Weight: 174 DIMENSIONS LVDd4.0 (3.8-5.7cm)LA (2D)3.9 (1.9-4.0cm)Aortic Root3.0 (2.0-3.7cm) LVDs2.5 (2.5-4.0cm)LA (MM) (1.9-4.0cm)Aortic Cusp Exc1.7 (1.5-2.0cm) EF (%) 70.0 (55-70%)Rt. Atrium3.8 (1.9-4.0cm)Asc. Aorta cm Mitral Valve MitralMitral Stenosis E wave0.63m/sMV Mean GR.mmHg A wave0.95m/sMV Peak GR.mmHg E/A ratio0.72D MVAcm2 DECEL [id number] 1/2 [id number] IVRTmsDop MVA2.85cm2 Aortic Valve Aortic ValveAortic Stenosis V11.25m/Luz Mean GR.5mmHg V21.59m/Luz Peak GR.10mmHg LVOT Diameter1.9 (1.8-2.4cm)Doppler AVA2.23cm2 Pulmonic Valve V21.32m/s Tricuspid Valve TR Velocity2.66m/s [id number] Conclusion lvef 70% RV enlargdd , normal function left atrium enlarged mild no severe valve abnormalities noted
--- NOTE | 2025-05-30 12:29 | DVHDS2 ---
Discharge Summary Date of Admission May 28, 2025 at 15:03 Date of Discharge: May 30, 2025 Labs/Diagnostic Data: Laboratory Results Test 05/30/25 05:44 05/29/25 05:00 05/28/25 11:25 05/28/25 11:15 White Blood Count 7.2 10^3/uL (4.4-10.8) Red Blood Count 3.99 10^6/uL (4.0-5.20) Hemoglobin 12.9 g/dL (12.2-16.2) Hematocrit 37.4 % (36.0-46.0) Mean Corpuscular Volume 93.7 fL (80.0-100.0) Mean Corpuscular Hemoglobin 32.4 pg (28.0-32.0) Mean Corpuscular Hemoglobin Concent 34.6 g/dL (32.0-36.0) Red Cell Distribution Width 12.9 % (11.8-14.3) Platelet Count 213 10^3/uL (140-450) Mean Platelet Volume 10.6 fL (6.9-10.8) Neutrophils (%) (Auto) 51.7 % (37.0-80.0) Lymphocytes (%) (Auto) 36.5 % (10.0-50.0) Monocytes (%) (Auto) 9.7 % (0.0-12.0) Eosinophils (%) (Auto) 1.4 % (0.0-7.0) Basophils (%) (Auto) 0.7 % (0.0-2.0) Neutrophils # (Auto) 3.7 10 ^3/uL (1.6-8.6) Lymphocytes # (Auto) 2.6 10 ^3/uL (0.4-5.4) Monocytes # (Auto) 0.7 10 ^3/uL (0-1.3) Eosinophils # (Auto) 0.1 10 ^3/uL (0-0.8) Basophils # (Auto) 0.1 10 ^3/uL (0-0.2) Nucleated Red Blood Cells 0.0 % Sodium Level 142 mmol/L (136-145) Potassium Level 3.5 mmol/L (3.5-5.1) Chloride Level 102 mmol/L (98-107) Carbon Dioxide Level 29 mmol/L (20-31) Anion Gap 11 (5-15) Blood Urea Nitrogen 13 mg/dL (9-23) Creatinine 0.74 mg/dL (0.550-1.02) Glomerular Filtration Rate Calc 93 mL/min (>90) BUN/Creatinine Ratio 17.6 (10.0-20.0) Serum Glucose 95 mg/dL (74-106) Calcium Level 9.3 mg/dL (8.7-10.4) Total Bilirubin 0.5 mg/dL (0.2-1.0) Aspartate Amino Transferase (AST) 28 U/L (13-40) Alanine Aminotransferase (ALT) 22 U/L (7-40) Alkaline Phosphatase 91 U/L (46-116) Total Protein 8.4 g/dL (5.7-8.2) Albumin 4.6 g/dL (3.2-4.8) Hepatitis B Surface Antibody Negative (Negative) Hepatitis C Antibody Negative (Negative) Urine Color Light-yellow (Yellow) Urine Clarity Clear (Clear) Urine pH 6.0 (5.0-9.0) Urine Specific [place] 1.017 (1.001-1.035) Urine Protein Trace (Negative) Urine Ketones Negative (Negative) Urine Blood Negative /uL (Negative) Urine Nitrite Negative (Negative) Urine Bilirubin Negative (Negative) Urine Urobilinogen Normal mg/dL (Negative) Urine Leukocyte Esterase 2+ /uL (Negative) Urine RBC 1 /hpf (0 - 4) Urine Microscopic WBC 3 /HPF (0-5) Urine Squamous Epithelial Cells Few /hpf (<5) Urine Bacteria Few /hpf (None Seen) Urine Mucus Few (None Seen) Urine Glucose Normal mg/dL (Normal) Urine Opiates Screen Neg (NEGATIVE) Urine Fentanyl Screen Neg (NEGATIVE) Urine Barbiturates Screen Neg (NEGATIVE) Urine Phencyclidine Screen Neg (NEGATIVE) Urine Amphetamines Screen Neg (NEGATIVE) Urine Benzodiazepines Screen Neg (NEGATIVE) Urine Cocaine Screen Neg (NEGATIVE) Urine Cannabinoids Screen Neg (NEGATIVE) D-Dimer, Quantitative 0.75 mg/L FEU (0.0-0.49) Troponin I High Sensitivity 3 ng/L (</=34) B-Type Natriuretic Peptide 7.72 pg/mL (0-100) Other Laboratory Tests 05/30/25 05:44 Brief Hx & Hospital Course: 60-year-old female with history of Arthritis, High Lipids, HTN presents secondary to recurrent falls. She states she has fallen multiple times over the last three months. She finds herself on the floor after these events. She has no sensation or presenting noticed that she will fall. This morning, however, she states she feels generally unwell. Next thing she knows, she feels herself on the ground with the right side of her head, right shortness/normal right hip hurting. She became concerned and presented here. She has no other focal complaints but does feel generally weak. She endorses being under more stress than usual but otherwise has no other complaints. She denies such things with the vision changes, chest pain, flank pain, dysuria, urine frequency, fever, chills, sweats, nausea or vomiting. Denies modifying factors. Denies radiation of her symptoms. 05/29: Admission team has done extensive workup CT head, MRI, carotid Doppler, CT angio head neck which are all negative, we are pending echo. Pending orthostatics. We will order PT. We will need to review EKG, keep patient on tele. UDS negative, no significant hypotension. Continuing workup for syncope/presyncope. Areas of by impact on body including right elbow was negative for fractures. Patient has some early signs of UTI, UDS negative, some signs of low-grade dehydration with increased creatinine, mild concentration of urine,. Patient also has hypokalemia. Patient has had multiple episodes of syncope/presyncope, appears to be possible cardiac nature, it is concerning, although workup negative psoas far we will monitor on telemetry at least 48 hours. Orthostatic vitals today. We will hold off amlodipine and losartan as blood pressure within normal range despite no medications being given. Orthostatics were negative but since blood pressure is normal patient is presenting as orthostatic symptoms at home we will hold off any blood pressure medications. 05/30: Patient ambulating, without syncope, without dizziness or gait abnormalities. Orthostatics were negative. Blood pressure is mildly elevated so we will continue amlodipine 5 mg only, hold off losartan. Echocardiogram had some mild right ventricular enlargement EF 70%, otherwise unremarkable no valvular abnormalities. Patient is going to see Cardiology on June 12 and we will likely need a outpatient Holter or event monitor. While here on telemetry patient had 3 episodes of tachycardia sinus tachycardia 130s but did not coincide with any symptoms. Stable for discharge as per plan below. Diagnosis: Syncope due to iatrogenic polypharmacy possible Volume depletion , resolved Hypokalemia , repleted, resolved Ruled out carotid stenosis Ruled out intracranial hemorrhage Ruled out stroke Physical deconditioning possible Acute complicated UTI possible discharge plan : continue amlodipine 5 mg only, hold off losartan. Echocardiogram had some mild right ventricular enlargement EF 70%, otherwise unremarkable no valvular abnormalities. Patient is going to see Cardiology on June 12 and we will likely need a outpatient Holter or event monitor. Do not mixed sedatives (i.e. tizanidine and trazodone) use Sumanth hose compression stockings during ambulation. Follow up PCP to review discharge. Condition at Discharge: Fair Final Diagnosis/Problems List Syncope due to iatrogenic polypharmacy possible Volume depletion , resolved Hypokalemia , repleted, resolved Ruled out carotid stenosis Ruled out intracranial hemorrhage Ruled out stroke Physical deconditioning possible Acute complicated UTI possible Discharge Disposition: Home Discharge Instruct/Medications Scheduled Amlodipine Besylate (Amlodipine Besylate), 10 MG PO DAILY, (Reported) Amlodipine Besylate (Norvasc Tablet), 1 TAB PO DAILY Cholecalciferol (Vitamin D3), 1 TAB PO DAILY, (Reported) Docusate Sodium (Colace), 1 CAP PO DAILY, (Reported) Doxycycline Hyclate (Doxycycline Hyclate), 100 MG PO BID, (Reported) Ferrous Sulfate (Ferrous Sulfate), 325 MG PO DAILY, (Reported) Fexofenadine Hcl (Fexofenadine Hcl), 60 MG PO BID, (Reported) Gabapentin (Gabapentin), 400 MG PO TID, (Reported) Hydrocodone-Acetaminophen (Hydrocodone/Acetaminophen 10-325 mg), 1 TAB PO TID, (Reported) Losartan Potassium (Losartan Potassium), 50 MG PO DAILY, (Reported) Propranolol Hcl (Inderal La), 40 MG PO DAILY, (Reported) Sertraline Hcl (Sertraline Hcl), 100 MG PO DAILY, (Reported) Tizanidine HCl (Tizanidine Hydrochloride), 4 MG PO TID, (Reported) Trazodone Hcl (Trazodone Hcl), 100 MG PO HS, (Reported) Discharge Statement: "Patient was advised to return to the ER or call 911 if any headaches, dizziness, shortness of breath, chest pain, abdominal pain, bleeding, fevers, or worsening of medical condition. Patient was counseled about treatment plan, medications, possible side effects, patientverbalized understanding. All questions were answered to the best of my ability. This discharge took greater then 30 minutes in planning, reviewing documentation, counseling the patient, and discussing with other team members." ASSESSMENT ASSESSMENT Assessment Date of Service: May 30, 2025 Billing Provider: MAI HEART MD Common Visit Codes: 82857-LKK/OBS DISCH DAY >30min MAI HEART MD May 30, 2025 12:29
[2025-05-30 13:02] VITALS: BP_SYST 133; BP_SYST 141; BP_SYST 153; BP_DIAS 75; BP_DIAS 86; BP_DIAS 89; PULSE 89; RESP 18
[2025-05-30] MEDS ORDERED: AML5T PO (15:40)
[2025-05-30 16:23] VITALS: BP 134/87; TEMP 36.6
--- NOTE | 2025-05-31 07:26 | ECG ---
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
== END 2025-05-30 18:25 | disposition home or self-care (01) | DRG 463 ==
LOC: ER 10:33 → OVERFLOW 15:03 → TELE-EAST 05-29 21:53
PROVIDERS: ADMIT Student in an Organized Health Care Education/Training Program; ATTEND Student in an Organized Health Care Education/Training Program
DX: N30.00 Acute cystitis without hematuria (principal); E86.9 Volume depletion, unspecified; E87.6 Hypokalemia; T50.915A Adverse effect of multiple unspecified drugs, medicaments and biological substances, initial encounter; I10 Essential (primary) hypertension; Z90.710 Acquired absence of both cervix and uterus; R55 Syncope and collapse; Z83.3 Family history of diabetes mellitus; Z90.49 Acquired absence of other specified parts of digestive tract; Z80.9 Family history of malignant neoplasm, unspecified; Y92.89 Other specified places as the place of occurrence of the external cause
CPT/HCPCS: 36415; 70450; 70551; 71275; 73070; 80048; 80053; 80307; 81001; 83880; 84484; 85025; 85379; 86706; 86803; 93005; 93306; 93886; G0378; J2003